=== PATIENT | male | born 1990 | race Caucasian/White ===

== ENCOUNTER 2016-12-09 06:34 | Emergency (ER) | payer OTHER ==
[~2016-12-09] VITALS: Ht 175.3 cm; Wt 77.1 kg
[2016-12-09 06:45] VITALS: BP 116/77
--- NOTE | 2016-12-09 07:15 | ED GI/GU/ABDOMINAL COMPLAINT ---
History of Present Illness General Chief Complaint: Abdominal Pain/Flank Pain Stated Complaint: ABD PAIN S/P "SOMETHING HEAVY" FALLING ON ME Source: patient Exam Limitations: no limitations Vital Signs & Intake/Output Vital Signs & Intake/Output Vital Signs Date Time Temp Pulse Resp B/P B/P Pulse O2 O2 Flow FiO2 Mean Ox Delivery Rate 12/09 0651 Room Air 12/09 0645 96.1 83 18 116/77 99 Room Air Allergies Coded Allergies: NO KNOWN ALLERGIES (08/04/11) Reconcile Medications No Known Home Medications Triage Note: PT TO TRIAGE C/O ABD PAIN S/P PVC PIPES FALLING ON HIM ON THURSDAY. PT WENT TO WALK IN AND HAD NEGATIVE CHEST XRAY. REPORTS PAIN IS WORSE WITH MOVEMENT AND BOWEL MOVEMENTS. Triage Nurses Notes Reviewed? yes Onset: Abrupt Duration: day(s): (5) Timing: recent history Quality/Severity: mild, moderate Location: LEFT LOWER CHEST WALL Radiation: no radiation Modifying Factors: Worsens With: movement, other (PALPATION). HPI: A 26-year-old male who presents here with chief complaint of left lower rib pain after approximately 250 pounds of PVC piping fell on him on Thursday while he was helping a friend. He states that the piping fell on him immediately rolled off. He went to a walk-in clinic that same afternoon and had x-rays done that were normal and a urine that was negative for blood. It'll hurt for several days but states that his pain was still here today especially with movement he decided to come to ER. He has not been taking anything [id number] for pain except for tumor capsules for anti-inflammatory purposes. He does smoke medical marijuana. Denies any difficulty with eating. He states he had some pain with attempted to use the bathroom. Small amount of bruising on his left upper chest wall which has resolved with icing. Past History Travel History Traveled to [place] past 21 day No Medical History Any Pertinent Medical History? see below for history Neurological: NONE EENT: NONE Cardiovascular: NONE Respiratory: NONE Gastrointestinal: NONE Hepatic: NONE Renal: NONE Musculoskeletal: NONE Psychiatric: NONE Endocrine: NONE Blood Disorders: NPNE Cancer(s): NONE Surgical History Surgical History: non-contributory Psychosocial History What is your primary language [place] Tobacco Use: Never used ETOH Use: denies use Illicit Drug Use: marijuana Family History Hx Contributory? No Review of Systems Review of Systems Constitutional: Denies: chills, fever. EENTM: Reports: no symptoms. Respiratory: Denies: cough, short of breath. Cardiovascular: Reports: chest pain. Denies: peripheral edema. GI: Reports: abdominal pain. Denies: diarrhea, nausea, vomiting. Genitourinary: Reports: no symptoms. Musculoskeletal: Reports: no symptoms. Skin: Reports: no symptoms. Neurological/Psychological: Reports: no symptoms. Hematologic/Endocrine: Reports: bruising. Denies: bleeding, polyuria, polydipsia. Immunologic/Allergic: Denies: splenectomy. All Other Systems: Reviewed and Negative Physical Exam Physical Exam General Appearance: well developed/nourished, alert, awake, anxious, mild distress Head: atraumatic, normal appearance Eyes: Bilateral: normal appearance, PERRL, EOMI. Ears, Nose, Throat, Mouth: hearing grossly normal, moist mucous membrane Neck: normal inspection, supple, full range of motion Respiratory: normal breath sounds, no respiratory distress, TENDER OVER LEFT LOWER ANTERIOR CHEST WALL, NO STEP-OFF OR CREPITUS, NO BRUISING Cardiovascular: regular rate/rhythm Peripheral Pulses: 2+ radial (R), 2+ radial (L) Gastrointestinal: soft, non-tender Neurologic/Psych: awake, alert, oriented x 3, ANXIOUS Skin: intact, normal color, warm/dry Diagram Body Front & Back 1) SMALL HEALING BRUISE Core Measures ACS in differential dx? No Severe Sepsis Present: No Septic Shock Present: No Progress Differential Diagnosis: RIB FRACTURE, PNEUMOTHORAX Plan of Care: Orders Procedure Date/time Status CT CHEST WO IV CONTRAST 12/09 721 Active Diagnostic Imaging: Viewed by Me: CT Scan. Discussed w/RAD: CT Scan. Radiology Impression: PATIENT: TONIE CLEMENTS JR PRESENT AGE: 26 PATIENT ACCOUNT NO: [id number] : 89 LOCATION: [facility] ORDERING PHYSICIAN: SUJIT DUARTE MD SERVICE DATE: 12/09/16 EXAM TYPE: CAT - CT CHEST WO IV CONTRAST EXAMINATION: CT CHEST WITHOUT CONTRAST CLINICAL INFORMATION: Left lower rib pain following trauma a few days ago. Question rib fracture. COMPARISON: No pertinent prior studies are available for comparison. TECHNIQUE: Multidetector volumetric imaging was performed from the thoracic inlet through the lung bases without contrast. Sagittal and coronal reformatted images were obtained on the technologist workstation. Soft tissue and lung algorithms evaluated. Thick slab MIP images were performed to increase nodule conspicuity. DLP: 257 mGy-cm. FINDINGS: The heart is normal in size. No pericardial effusion. Thoracic aorta is normal in caliber. No gross mediastinal lymphadenopathy demonstrated on this noncontrast examination. Central airways are patent. Lungs are well aerated. No focal consolidation. No pleural effusion or pneumothorax. Tiny calcified granuloma of the left lower lobe. Visualized portions of the upper abdomen are grossly unremarkable. No acute osseous abnormality. No visualized rib fracture. IMPRESSION: No CT evidence for acute thoracic abnormality. No rib fracture. DICTATED BY: JARON POWELL MD DATE/TIME DICTATED:12/09/16741 STONE GRADER:LAVERNE DATE/TIME TRANSCRIBED:741 CONFIDENTIAL, DO NOT COPY WITHOUT APPROPRIATE AUTHORIZATION. < Electronically signed in Other Vendor System> SIGNED BY: JARON POWELL MD 12/09/16 0758 Initial ED EKG: none Departure Departure Time of Disposition: 808 Disposition: HOME OR SELF CARE Condition: Stable Clinical Impression Primary Impression: Rib pain on left side Referrals: KIM AUSTIN,TANO Rivera (PCP/Family) Additional Instructions: Take Tylenol or Motrin as needed for pain. There is no evidence of rib fracture or collapsed lung on your examination. Please follow-up with your doctor in the office. Return as needed. Departure Forms: Customer Survey General Discharge Information Prescriptions: Current Visit Scripts No Known Home Medications
--- NOTE | 2016-12-09 07:58 | CT SCAN REPORT ---
EXAMINATION: CT CHEST WITHOUT CONTRAST CLINICAL INFORMATION: Left lower rib pain following trauma a few days ago. Question rib fracture. COMPARISON: No pertinent prior studies are available for comparison. TECHNIQUE: Multidetector volumetric imaging was performed from the thoracic inlet through the lung bases without contrast. Sagittal and coronal reformatted images were obtained on the technologist workstation. Soft tissue and lung algorithms evaluated. Thick slab MIP images were performed to increase nodule conspicuity. DLP: 257 mGy-cm. FINDINGS: The heart is normal in size. No pericardial effusion. Thoracic aorta is normal in caliber. No gross mediastinal lymphadenopathy demonstrated on this noncontrast examination. Central airways are patent. Lungs are well aerated. No focal consolidation. No pleural effusion or pneumothorax. Tiny calcified granuloma of the left lower lobe. Visualized portions of the upper abdomen are grossly unremarkable. No acute osseous abnormality. No visualized rib fracture. IMPRESSION: No CT evidence for acute thoracic abnormality. No rib fracture.
== END 2016-12-09 08:26 ==
LOC: ERH 06:34
DX: R07.81 Pleurodynia (principal)